=== PATIENT | male | born 1985 | race Hispanic/Latino ===

== ENCOUNTER 2021-03-19 11:20 | Emergency (ER) | payer SELFPAY ==
--- OUTSIDE RECORDS SUMMARY | 2021-03-19 11:23 | XMS REPORT | Continuity of Care Document ---
:[address] [facility] t Address [address] [place] [address] Care Team Providers Name Role Phone Pcp, Does Not Have A Primary Care Physician Laura RAMSAY, T Attending Clinician Unavailable Only, Db Test Attending Clinician Unavailable Unknown Attending Clinician Unavailable Problems This patient has no known problems. Allergies, Adverse Reactions, Alerts This patient has no known allergies or adverse reactions. Social History Social Habit Start Date Stop Date Quantity Comments Source Exposure to Not sure [facility] SARS-CoV-2 (event) [facility] Sex Assigned At [birth year] [facility] 00:00:00 00:00:00 [facility] Smoking Status Start Date Stop Date Source Unknown if ever smoked [facility] Medications This patient has no known medications. Procedures This patient has no known procedures. Encounters Start End Encounter Admission Attending Care Care Encounter Source Date/Time Date/Time Type Type Clinicians Facility Department ID 2021-03-03 2021-03-03 Letter JENNI Sanchez [id number] [facility] 00:00:00 00:00:00 (Out) Kenia VARGAS [id number] it y of [facility] [id number] Jesu as [id number] [place] [address] [address] 2021-03-01 2021-03-01 Laboratory Only, Ang Db Test [facility] 1.2.8 [id number] Univers 10:35:14 10:50:14 Only Unknown, Attending Health [id number] ity of [place] [id number] Jesu as Hansel?Blea [phone] [address] Medical Office Building Results This patient has no known results.
[2021-03-19] MEDS ORDERED: LIDOCAINE 1% MPF 5 ML VIAL ONE (12:11)
--- NOTE | 2021-03-19 12:16 | EDPHYS ---
Physician Documentation [facility] Name: Benton Mcginnis Age: 36 yrs Sex: Male : 1985 Arrival Date: 03/19/2021 Time: 11:22 Bed 12 Private MD: ED Physician Juve Palencia HPI: 03/19 11:53 This 36 yrs old Male presents to ER via Ambulatory with complaints of finger rn laceration. 11:53 The patient has a laceration related to: doing yard work, occurred outdoors, and there rn are no complicating factors. The laceration(s) is(are) located on the right index finger. Onset: The symptoms/episode began/occurred just prior to arrival. Associated signs and symptoms: Pertinent negatives: heavy bleeding, suspected foreign body. The patient has not experienced similar symptoms in the past. The patient has not recently seen a physician. Patient reports turned off a chainsaw, was still spinning and hit right second digit on it. 2 or 3 small lacerations. No suspected foreign body. No arterial bleeding.. Historical: - Allergies: 11:41 No Known Allergies; jl7 - Home Meds: 11:41 None [Active]; jl7 - PMHx: 11:41 None; jl7 - PSHx: 11:41 None; jl7 - Immunization history:: Adult Immunizations unknown, Client reports receiving the 2nd dose of the Covid vaccine. - Social history:: Smoking status: Patient reports the use of cigarette tobacco products. - Family history:: not pertinent. - Hospitalizations: : No recent hospitalization is reported. ROS: 11:53 Constitutional: Negative for fever, chills, and weight loss, MS/Extremity: Positive for rn injury to right second digit. Skin: Positive for lacerations to right second digit Exam: 11:53 Constitutional: This is a well developed, well nourished patient who is awake, alert, rn and in no acute distress. MS/ Extremity: Pulses equal, no cyanosis. Neurovascular intact. Full, normal range of motion. Equal circumference. No bony tenderness or deformity. 3 superficial and clean lacerations to volar surface of the second digit of hand. No arterial bleeding. No foreign bodies noted. Each laceration is horizontal and approximately 2 cm each. Vital Signs: 11:40 BP 119 / 81; Pulse 73; Resp 17; Temp 97.1; Pulse Ox 98% ; Weight 84.37 kg; Height 5 ft. jl7 2 in. (157.48 cm); Pain 9/10; 11:40 Body Mass Index 34.02 (84.37 kg, 157.48 cm) jl7 Procedures: 11:53 Nerve block: (digital) of palmar aspect of proxima; phalanx of right index finger cerner analyst: Lidocaine 1% without epinephrine Amount: 4 mls were injected, Effect: the patient's symptoms are improved, Set up for procedure. Performed by Juve Palencia MD Patient tolerated well. Laceration: 12:12 Wound Repair of 3cm ( 1.2in ) subcutaneous laceration to right index finger. Distal rn neuro/vascular/tendon intact. Anesthesia: Digital block administered with 4 mls of 1% lidocaine. Wound prep: Extensive cleansing by nurse, Wound explored. Skin closed with 4 5-0 Prolene using interrupted sutures and sterile technique. Skin closed with 3 5-0 Prolene using interrupted sutures and sterile technique. Skin closed with 2 5-0 Prolene using interrupted sutures and sterile technique. Dressed with Bacitracin, 4x4's. Patient tolerated well. MDM: 11:43 Patient medically screened. rn 12:14 Differential diagnosis: superficial laceration. Data reviewed: vital signs, nurses rn notes, and as a result, I will discharge patient. Counseling: I had a detailed discussion with the patient and/or guardian regarding: the historical points, exam findings, and any diagnostic results supporting the discharge/admit diagnosis, the need for outpatient follow up, to return to the emergency department if symptoms worsen or persist or if there are any questions or concerns that arise at home. Response to treatment: the patient's symptoms have markedly improved after treatment, and as a result, I will discharge patient. Special discussion: I discussed with the patient/guardian in detail that at this point there is no indication for admission to the hospital. It is understood, however, that if the symptoms persist or worsen the patient needs to return immediately for re-evaluation. ED course: I did suturing of all 3 lacerations of right index finger well. Will DC home after tetanus vaccination. Will DC home with antibiotics.. 03/19 11:47 Order name: Wound Care; Complete Time: 11:57 rn 03/19 11:47 Order name: Suture Tray at Bedside; Complete Time: 11:57 rn Administered Medications: 11:50 Drug: Lidocaine (1 %) 1 vials {Note: administered by Dr. Palencia.} Volume: 5 ml; Route: ss Infiltration; 12:33 Drug: Tetanus-Diphtheria Toxoid Adult 0.5 ml {Shelf Drier Operator: H?REL. Exp: ss 10/03/2022. Lot #: [id number]. } Route: IM; Site: right deltoid; 12:46 Follow up: Response: No adverse reaction ss Disposition Summary: 03/19/21 12:16 Discharge Ordered Location: Home rn Problem: new rn Symptoms: have improved rn Condition: Stable rn Diagnosis - Laceration without foreign body of right index finger without damage to nail - 3 rn lacerations Followup: rn - With: Private Physician - When: 10 - 14 days - Reason: Wound Recheck, Recheck today's complaints, Staple/Suture removal, Re-evaluation by your physician Discharge Instructions: - Discharge Summary Sheet rn - Laceration Care, Adult rn - Sutured international accounting manager Forms: - Medication Reconciliation Form rn - Thank You Letter rn - Antibiotic tool grinder operator external - Prescription Opioid Use rn - Work release form Prescriptions: - Augmentin 875-125 mg Oral Tablet - take 1 tablet by ORAL route every 12 hours for 10 days; 20 tablet; Refills: 0, rn Product Selection Permitted Signatures: Juve Palencia MD MD rn Smirch, Shelby, RN RN ss Leal, Jahala, RN RN jl7
--- NOTE | 2021-03-19 12:16 | ER ---
Nurse's Notes [facility] Name: Benton Mcginnis Age: 36 yrs Sex: Male : 1985 Arrival Date: 03/19/2021 Time: 11:22 Bed 12 Private MD: Diagnosis: Laceration without foreign body of right index finger without damage to nail-3 lacerations Presentation: 03/19 11:40 Chief complaint: Patient states: Cut right first finger with chain saw about 1.5 hrs jl7 ago. Coronavirus screen: Vaccine status: Patient reports receiving the 2nd dose of the covid vaccine. Date January 2021 Pfizer At this time, the client does not indicate any symptoms associated with coronavirus-19. Ebola Screen: No symptoms or risks identified at this time. Initial Sepsis Screen: Does the patient meet any 2 criteria? No. Patient's initial sepsis screen is negative. Does the patient have a suspected source of infection? No. Patient's initial sepsis screen is negative. Risk Assessment: Do you want to hurt yourself or someone else? Patient reports no desire to harm self or others. Onset of symptoms was March 19, 2021. 11:40 Method Of Arrival: Ambulatory 7 11:40 Acuity: KEITH 4 jl7 Triage Assessment: 11:41 General: Appears in no apparent distress. uncomfortable, Behavior is calm, cooperative, jl7 appropriate for age. Pain: Complains of pain in right index finger Pain currently is 9 out of 10 on a pain scale. Historical: - Allergies: 11:41 No Known Allergies; jl7 - Home Meds: 11:41 None [Active]; jl7 - PMHx: 11:41 None; jl7 - PSHx: 11:41 None; jl7 - Immunization history:: Adult Immunizations unknown, Client reports receiving the 2nd dose of the Covid vaccine. - Social history:: Smoking status: Patient reports the use of cigarette tobacco products. - Family history:: not pertinent. - Hospitalizations: : No recent hospitalization is reported. Screenin:57 Abuse screen: Denies threats or abuse. Denies injuries from another. Nutritional ss screening: No deficits noted. Tuberculosis screening: Never had TB. Fall Risk None identified. Assessment: 11:57 General: Appears in no apparent distress. comfortable, Behavior is calm, cooperative, ss nervous laughing. Pain: Complains of pain in right index finger. Neuro: Level of Consciousness is awake, alert, obeys commands, Oriented to person, place, time, situation, Temple Marker are equal bilaterally. Cardiovascular: Capillary refill < 3 seconds is brisk in bilateral fingers. Respiratory: Airway is patent Respiratory effort is even, unlabored, Respiratory pattern is regular, symmetrical. GI: No signs and/or symptoms were reported involving the gastrointestinal system. EENT: Nares are clear. Derm: Skin is intact, is healthy with good turgor, Skin is pink, warm \T\ dry. normal. 11:57 Injury Description: Laceration sustained to right index finger is 0.5 to 2.5 cm long, ss was sustained 30-60 minutes ago. no active bleeding noted at this time. 12:01 Reassessment: Dr. Palencia at bedside for laceration repair. Vital Signs: 11:40 BP 119 / 81; Pulse 73; Resp 17; Temp 97.1; Pulse Ox 98% ; Weight 84.37 kg; Height 5 ft. jl7 2 in. (157.48 cm); Pain 9/10; 11:40 Body Mass Index 34.02 (84.37 kg, 157.48 cm) jl7 ED Course: 11:22 Patient arrived in ED. mr 11:39 Griselda Hunter, RN is Primary Nurse. jl7 11:41 Triage completed. jl7 11:41 Arm band placed on right wrist. jl7 11:43 Juve Palencia MD is Attending Physician. rn 11:57 Patient has correct armband on for positive identification. Bed in low position. Call ss light in reach. 12:44 No provider procedures requiring assistance completed. Patient did not have IV access ss during this emergency room visit. Wound care: to laceration located on palmar aspect of proxima; phalanx of right index finger and right index finger was cleaned with Hibiclens, Patient tolerated well. Administered Medications: 11:50 Drug: Lidocaine (1 %) 1 vials {Note: administered by Dr. Palencia.} Volume: 5 ml; Route: ss Infiltration; 12:33 Drug: Tetanus-Diphtheria Toxoid Adult 0.5 ml {Oral And Maxillofacial Surgeon: [employer]. Exp: ss 10/03/2022. Lot #: [id number]. } Route: IM; Site: right deltoid; 12:46 Follow up: Response: No adverse reaction Outcome: 12:16 Discharge ordered by . rn 12:44 Discharged to home ambulatory. ss 12:44 Condition: good 12:44 Discharge instructions given to patient, Instructed on discharge instructions, follow up and referral plans. Demonstrated understanding of instructions, follow-up care, Prescriptions given X 1. 12:45 Patient left the ED. Signatures: Naya Magaña mr Juve Palencia MD MD rn Smirch, Shelby, RN RN Griselda Hunter RN RN jl7
[2021-03-19] MEDS ORDERED: TETANUS & DIPHTHERIA TOX,ADULT 0.5 ML VIAL ONE (12:52)
[2021-03-19 12:58] VITALS: BP 119/81; TEMP 97.1; O2SAT 98
== END 2021-03-19 12:45 | disposition home or self-care (01) ==
LOC: ER 11:20
PROC: 0JQJ0ZZ Repair Right Hand Subcutaneous Tissue and Fascia, Open Approach (ICD-10-PCS; principal; 2021-03-19)
DX: S61.210A Laceration without foreign body of right index finger without damage to nail, initial encounter (principal); W29.3XXA Contact with powered garden and outdoor hand tools and machinery, initial encounter; F17.210 Nicotine dependence, cigarettes, uncomplicated
CPT/HCPCS: 64450; 90471; 90714; 99283

== ENCOUNTER 2021-03-25 10:26 | Emergency (ER) | payer SELFPAY ==
--- NOTE | 2021-03-25 10:45 | ER ---
Nurse's Notes [facility] Name: Benton Mcginnis Age: 36 yrs Sex: Male : 1985 Arrival Date: 03/25/2021 Time: 10:27 Bed Waiting Private MD: Diagnosis: Encounter for removal of sutures-Not ready for removal, too soon Presentation: 03/25 10:44 Chief complaint: Patient states: Needs stitches removed from R hand 2nd digit. Place 6 ll1 days ago. No redness, fever, or swelling. Coronavirus screen: Client denies travel out of the [place] in the last 14 days. At this time, the client does not indicate any symptoms associated with coronavirus-19. Ebola Screen: Patient denies travel to an Ebola-affected area in the 21 days before illness onset. Initial Sepsis Screen: Does the patient meet any 2 criteria? No. Patient's initial sepsis screen is negative. Does the patient have a suspected source of infection? Yes: Skin breakdown/wound. Risk Assessment: Do you want to hurt yourself or someone else? Patient reports no desire to harm self or others. Onset of symptoms was March 19, 2021. 10:44 Method Of Arrival: Ambulatory ll1 10:44 Acuity: KEITH 5 ll1 Triage Assessment: 10:45 General: Appears in no apparent distress. Behavior is calm, cooperative. Pain: Denies ll1 pain. Derm: Reports need stitches removed from R hand 2nd digit. No redness, pain, swelling, or fever since. Historical: - Allergies: 10:43 No Known Allergies; ll1 - PMHx: 10:43 None; ll1 - PSHx: 10:43 None; ll1 - Immunization history:: Last tetanus immunization: up to date. - Social history:: Smoking status: Patient reports the use of cigarette tobacco products, smokes one-half pack cigarettes per day. - Family history:: not pertinent. - Hospitalizations: : No recent hospitalization is reported. Screenin:45 Abuse screen: Denies threats or abuse. Nutritional screening: No deficits noted. ll1 Tuberculosis screening: No symptoms or risk factors identified. Fall Risk Total Aviles Fall Scale indicates No Risk (0-24 pts). Vital Signs: 10:44 BP 134 / 91; Pulse 71; Resp 17; Temp 97.7; Pulse Ox 96% ; Pain 0/10; ll1 ED Course: 10:27 Patient arrived in ED. am2 10:30 Juve Palencia MD is Attending Physician. rn 10:43 Arm band placed on Patient placed in an exam room, on a stretcher. ll1 10:46 Triage completed. ll1 10:50 Patient has correct armband on for positive identification. Bed in low position. Call ll1 light in reach. Side rails up X 1. Cardiac monitoring not applicable on this patient. 10:50 No provider procedures requiring assistance completed. Patient did not have IV access ll1 during this emergency room visit. Administered Medications: No medications were administered Outcome: 10:45 Discharge ordered by MD. rn 10:55 Patient left the ED. ll1 10:55 Discharged to home ambulatory. ll1 10:55 Condition: stable 10:55 Discharge instructions given to patient, Instructed on discharge instructions, follow up and referral plans. Demonstrated understanding of instructions, follow-up care. Signatures: Juve Palencia MD MD rn Moreno, Amanda am2 Liv Monroy RN RN [facility]
--- NOTE | 2021-03-25 10:45 | EDPHYS ---
Physician Documentation [facility] Name: Benton Mcginnis Age: 36 yrs Sex: Male : 1985 Arrival Date: 03/25/2021 Time: 10:27 Bed Waiting Private MD: ED Physician Juve Palencia HPI: 03/25 10:43 This 36 yrs old Male presents to ER via Unassigned with complaints of Suture rn Removal. 10:43 The patient has sutures on the Right index finger. Previous treatment: The patient was rn initially treated 6 day(s) ago. Sutures/inderjit progress: The patient has no c/o's. The wound is well-healing with no redness, swelling, discharge, or dehiscence reported. The patient has not experienced similar symptoms in the past. The patient has been recently seen at the [facility] Emergency Department. Sutures to right index finger placed 6 days ago. Patient states doing well. Wounds have not opened up. Here for removal. Also needs clearance to return to work.. Historical: - Allergies: 10:43 No Known Allergies; ll1 - PMHx: 10:43 None; ll1 - PSHx: 10:43 None; ll1 - Immunization history:: Last tetanus immunization: up to date. - Social history:: Smoking status: Patient reports the use of cigarette tobacco products, smokes one-half pack cigarettes per day. - Family history:: not pertinent. - Hospitalizations: : No recent hospitalization is reported. ROS: 10:43 Constitutional: Negative for fever, chills, and weight loss, MS/Extremity: Sutures in rn place and wounds appear to be healing well Exam: 10:43 Constitutional: This is a well developed, well nourished patient who is awake, alert, rn and in no acute distress. MS/ Extremity: Pulses equal, no cyanosis. Neurovascular intact. Full, normal range of motion. Equal circumference. Wounds healing well without signs of cellulitis or dehiscence. Vital Signs: 10:44 BP 134 / 91; Pulse 71; Resp 17; Temp 97.7; Pulse Ox 96% ; Pain 0/10; ll1 MDM: 10:43 Data reviewed: vital signs, nurses notes, and as a result, I will discharge patient. ED rn course: Told patient 6 days too soon. Recommend come back in 4 days for 10 days total then will remove sutures. Signed return to work paperwork for patient.. 10:45 Patient medically screened. rn Administered Medications: No medications were administered Disposition Summary: 03/25/21 10:45 Discharge Ordered Location: Home rn Problem: new rn Symptoms: have improved rn Condition: Stable rn Diagnosis - Encounter for removal of sutures - Not ready for removal, too soon rn Followup: rn - With: Private Physician - When: As needed - Reason: Recheck today's complaints, Re-evaluation by your physician Discharge Instructions: - Discharge Summary Sheet rn - How to Change Your Wound Dressing rn - Laceration Care, Adult rn Forms: - Medication Reconciliation Form rn - Thank You Letter rn - Antibiotic internal medicine veterinary technician - Prescription Opioid Use rn Signatures: Juve Palencia MD MD rn Lewis, Lynsay, RN RN ll1
[2021-03-25 11:16] VITALS: BP 134/91; TEMP 97.7; O2SAT 96
== END 2021-03-25 10:55 | disposition home or self-care (01) ==
LOC: ER 10:26
DX: Z48.02 Encounter for removal of sutures (principal)
CPT/HCPCS: 99281

== ENCOUNTER 2021-12-14 03:02 | Emergency (ER) | payer SELFPAY ==
--- OUTSIDE RECORDS SUMMARY | 2021-12-14 03:05 | XMS REPORT | Continuity of Care Document ---
:1985 Author Organization [facility] t Address [address] [place] [address] Care Team Providers Name Role Phone Pcp, Does Not Have A Primary Care Physician Laura RAMSAY T Attending Clinician Unavailable Only, Db Test Attending Clinician Unavailable Unknown Attending Clinician Unavailable UNKNOWN Attending Clinician Unavailable Payers Payer Name Policy Type Policy Number Effective Date Expiration Date S ource Problems This patient has no known problems. Allergies, Adverse Reactions, Alerts Allergy Allergy Status Severity Reaction(s) Onset Inactive Treating Comm ents Source Name Type Date Date Clinician NO KNOWN Drug Active Univers ALLERGIE Class [facility] Social History Social Habit Start Date Stop Date Quantity Comments Source Exposure to Not sure [facility] SARS-CoV-2 (event) [facility] Sex Assigned At [birth year] [facility] 00:00:00 00:00:00 [facility] Smoking Status Start Date Stop Date Source Unknown if ever smoked [facility] Medications This patient has no known medications. Procedures This patient has no known procedures. Encounters Start End Encounter Admission Attending Care Care Encounter Source Date/Time Date/Time Type Type Clinicians Facility Department ID 2021-04-17 Outpatient [facility] [id number] [facility] 20:47:22 [id number] [facility] 2021-03-03 2021-03-03 Letter JENNI Sanchez [id number] Univers 00:00:00 00:00:00 (Out) Kenia VARGAS [id number] [facility] [id number] Jesu as [phone] [place] [id number] [address] 2021-03-01 2021-03-01 Outpatient R [facility] [id number] Univers 11:10:00 11:10:00 [id number] ity of [facility] 2021-03-01 2021-03-01 Laboratory Only, Ang Db Test [facility] 1.2.8 [id number] Univers 10:35:14 10:50:14 Only Unknown, Attending [facility] [id number] ity [facility] [id number] Jesu as Hansel?Blea [phone] Fl lindsey [address] Medical Office Building 2021-03-01 2021-03-01 Outpatient R UNKNOWN, [facility] [id number] Univers 10:35:00 10:35:00 ATTENDING ity [facility] Results This patient has no known results.
[2021-12-14] MEDS ORDERED: TETRACAINE HCL 0.5% 4ML OPTH ONE (05:01)
[2021-12-14] MEDS ORDERED: FLUORESCEIN SODIUM 1 MG/WRAP ONE (05:01)
[2021-12-14] MEDS ORDERED: AMOXICILLIN TRIHYDR 250 MG CAP ONE (05:57)
--- NOTE | 2021-12-14 06:41 | ER ---
Nurse's Notes [facility] Name: Benton Mcginnis Age: 36 yrs Sex: Male : 1985 Arrival Date: 12/14/2021 Time: 03:05 Bed 27 Private MD: Diagnosis: Unspecified acute conjunctivitis, bilateral;Corneal abrasion, right;Acute pharyngitis, unspecified Presentation: 12/14 03:31 Chief complaint: Patient states: I have a soar throat that started on Wednesday jb4 afternoon. I was doing yard work today and after both my eyes started getting red and I have discharge from my left eye. Coronavirus screen: At this time, the client does not indicate any symptoms associated with coronavirus-19. Ebola Screen: No symptoms or risks identified at this time. Mechanism of Injury: possible foreign body in eye. The patient denies any loss of vision. Initial Sepsis Screen: Does the patient meet any 2 criteria? No. Patient's initial sepsis screen is negative. Does the patient have a suspected source of infection? No. Patient's initial sepsis screen is negative. Risk Assessment: Do you want to hurt yourself or someone else? Patient reports no desire to harm self or others. Onset of symptoms was December 14, 2021. Transition of care: patient was not received from another setting of care. 03:31 Method Of Arrival: Ambulatory jb4 03:31 Acuity: KEITH 3 jb4 Historical: - Allergies: 03:33 No Known Allergies; jb4 - Home Meds: 03:33 None [Active]; jb4 - PMHx: 03:33 None; jb4 - PSHx: 03:33 None; jb4 - Immunization history:: Adult Immunizations up to date. - Social history:: Smoking status: Patient reports the use of cigarette tobacco products, smokes .25 packs per day. Screenin:08 Abuse screen: Denies threats or abuse. Nutritional screening: No deficits noted. jb4 Tuberculosis screening: No symptoms or risk factors identified. Fall Risk None identified. Assessment: 04:00 General: Appears in no apparent distress. comfortable, Behavior is calm, cooperative, jb4 appropriate for age. Pain: Complains of pain in right eye and left eye Pain does not radiate. Pain currently is 7 out of 10 on a pain scale. Neuro: Level of Consciousness is awake, alert, obeys commands, Oriented to person, place, time, situation. Cardiovascular: Patient's skin is warm and dry. Respiratory: Airway is patent Respiratory effort is even, unlabored, Respiratory pattern is regular, symmetrical. EENT: Eyes with exudate noted from left inner canthus Sclera/Cornea are reddened in outer aspect of conjuctiva of right eye, iris of right eye, inner aspect of conjuctiva of right eye, outer aspect of conjuctiva of left eye, iris of left eye and inner aspect of conjunctiva of left eye. Derm: Skin is intact, Skin is pink, warm \T\ dry. 05:09 Reassessment: Patient appears in no apparent distress at this time. Patient and/or jb4 family updated on plan of care and expected duration. Pain level reassessed. Patient is alert, oriented x 3, equal unlabored respirations, skin warm/dry/pink. 06:54 Reassessment: Patient appears in no apparent distress at this time. Patient and/or jb4 family updated on plan of care and expected duration. Pain level reassessed. Patient is alert, oriented x 3, equal unlabored respirations, skin warm/dry/pink. Vital Signs: 03:31 BP 138 / 87; Pulse 98; Resp 16; Temp 97.8(TE); Pulse Ox 99% on R/A; Weight 84.82 kg jb4 (R); Height 5 ft. 3 in. (160.02 cm) (R); Pain 7/10; 03:31 Body Mass Index 33.13 (84.82 kg, 160.02 cm) jb4 Visual Acuity: 05:08 Left Eye Visual acuity 20/40, Pupil size 4 mm, Normal, React To Light; Right Eye Visual jb4 acuity 20/40, Pupil size 4 mm, Normal, React To Light; Both Eyes Visual acuity 20/30; Without Lenses; ED Course: 03:05 Patient arrived in ED. bp1 03:33 Triage completed. jb4 03:33 Arm band placed on right wrist. jb4 03:50 Ludwig Hurt MD is Attending Physician. mh7 04:09 Pietro Spencer, SOBIA is Primary Nurse. jb4 06:38 Princess Lorenzo MD is Referral Physician. 7 06:54 Patient has correct armband on for positive identification. Bed in low position. Call jb4 light in reach. Side rails up X 1. 06:54 No provider procedures requiring assistance completed. Patient did not have IV access jb4 during this emergency room visit. Administered Medications: 05:43 Drug: Tetracaine Drops 0.5 % 1 drops {Note: Administered by provider.} Route: jb4 Ophthalmic; Site: both eyes; 05:48 Not Given (medication unavailablee): Ciprofloxacin Drops 0.3 % 2 drops Ophthalmic once jb4 05:52 Drug: Amoxicillin 500 mg Route: PO; jb4 06:55 Follow up: Response: No adverse reaction jb4 Medication: 05:08 VIS not applicable for this client. jb Outcome: 06:40 Discharge ordered by . [facility] 06:54 Discharged to home ambulatory. jb4 06:54 Condition: stable 06:54 Discharge instructions given to patient, Instructed on discharge instructions, follow up and referral plans. medication usage, Demonstrated understanding of instructions, follow-up care, medications, Prescriptions given X 2. 06:55 Patient left the ED. [facility] Signatures: Pietro Spencer RN RN 4 Mckenna Boles Maurice, MD MD 7
--- NOTE | 2021-12-14 06:41 | EDPHYS ---
Physician Documentation [facility] Name: Benton Mcginnis Age: 36 yrs Sex: Male : 1985 Arrival Date: 12/14/2021 Time: 03:05 Bed 27 Private MD: ED Physician Ludwig Hurt HPI: 12/14 05:20 This 36 yrs old Male presents to ER via Ambulatory with complaints of Eye mh7 Injury, Eye Pain, Sore Throat. 05:20 The patient is experiencing pain, redness, to both eyes, caused by an unknown mh7 mechanism. Onset: The symptoms/episode began/occurred yesterday. 05:20 Duration: the symptoms are continuous. Aggravated by rubbing, Alleviated by nothing. mh7 Associated signs and symptoms: Pertinent negatives: chills, dizziness, ear ache, fever, headache, runny nose. Patient does not utilize any form of vision correction. Severity of symptoms: At their worst the symptoms were moderate last night, in the emergency department the symptoms are unchanged. Also complains of sore throat for 4 days.. Historical: - Allergies: 03:33 No Known Allergies; jb4 - Home Meds: 03:33 None [Active]; jb4 - PMHx: 03:33 None; jb4 - PSHx: 03:33 None; jb4 - Immunization history:: Adult Immunizations up to date. - Social history:: Smoking status: Patient reports the use of cigarette tobacco products, smokes .25 packs per day. ROS: 05:20 Constitutional: Negative for fever, chills, and weight loss, Neck: Negative for injury, mh7 pain, and swelling, Cardiovascular: Negative for chest pain, palpitations, and edema, Respiratory: Negative for shortness of breath, cough, wheezing, and pleuritic chest pain, Abdomen/GI: Negative for abdominal pain, nausea, vomiting, diarrhea, and constipation, Back: Negative for injury and pain, : Negative for injury, bleeding, discharge, and swelling, MS/Extremity: Negative for injury and deformity, Skin: Negative for injury, rash, and discoloration, Neuro: Negative for headache, weakness, numbness, tingling, and seizure, Psych: Negative for depression, anxiety, suicide ideation, homicidal ideation, and hallucinations, Allergy/Immunology: Negative for hives, rash, and allergies, Endocrine: Negative for neck swelling, polydipsia, polyuria, polyphagia, and marked weight changes, Hematologic/Lymphatic: Negative for swollen nodes, abnormal bleeding, and unusual bruising. Exam: 05:20 Visual Acuity: I have reviewed the nursing documentation. mh7 05:20 Constitutional: This is a well developed, well nourished patient who is awake, alert, and in no acute distress. Head/Face: Normocephalic, atraumatic. 05:20 Neck: Trachea midline, no thyromegaly or masses palpated, and no cervical lymphadenopathy. Supple, full range of motion without nuchal rigidity, or vertebral point tenderness. No Meningismus. Chest/axilla: Normal chest wall appearance and motion. Nontender with no deformity. No lesions are appreciated. Cardiovascular: Regular rate and rhythm with a normal S1 and S2. No gallops, murmurs, or rubs. Normal PMI, no JVD. No pulse deficits. Respiratory: Lungs have equal breath sounds bilaterally, clear to auscultation and percussion. No rales, rhonchi or wheezes noted. No increased work of breathing, no retractions or nasal flaring. Abdomen/GI: Soft, non-tender, with normal bowel sounds. No distension or tympany. No guarding or rebound. No evidence of tenderness throughout. Back: No spinal tenderness. No costovertebral tenderness. Full range of motion. Skin: Warm, dry with normal turgor. Normal color with no rashes, no lesions, and no evidence of cellulitis. MS/ Extremity: Pulses equal, no cyanosis. Neurovascular intact. Full, normal range of motion. Neuro: Awake and alert, GCS 15, oriented to person, place, time, and situation. Cranial nerves II-XII grossly intact. Motor strength 5/5 in all extremities. Sensory grossly intact. Cerebellar exam normal. Normal gait. Psych: Awake, alert, with orientation to person, place and time. Behavior, mood, and affect are within normal limits. 05:20 Eyes: Periorbital structures: appear normal, Pupils: equal, round, and reactive to light and accomodation, Extraocular movements: intact throughout, Conjunctiva: injected, bilaterally, Corneas: abrasion, that is small, approximately 6 mm(s), on the right, a fluorescein strip employed to appreciate the findings, Sclera: no appreciated abnormality, Lids and lashes: appear normal, funduscopic exam reveals no obvious abnormalities, Visual kapoor: are intact, Nystagmus: is not appreciated. 05:20 ENT: External ear(s): are unremarkable, Ear canal(s): are normal, clear, TM's: are normal, Nose: is normal, Mouth: is normal, Posterior pharynx: Airway: normal, Tonsils: bilaterally enlarged, with erythema, Uvula: normal, swelling, that is mild, erythema, that is mild, exudate, is not appreciated, peritonsillar mass, is not appreciated, pooling of secretions, is not appreciated, Dental exam: normal, Voice: is normal. Vital Signs: 03:31 BP 138 / 87; Pulse 98; Resp 16; Temp 97.8(TE); Pulse Ox 99% on R/A; Weight 84.82 kg jb4 (R); Height 5 ft. 3 in. (160.02 cm) (R); Pain 7/10; 03:31 Body Mass Index 33.13 (84.82 kg, 160.02 cm) jb4 Visual Acuity: 05:08 Left Eye Visual acuity 20/40, Pupil size 4 mm, Normal, React To Light; Right Eye Visual jb4 acuity 20/40, Pupil size 4 mm, Normal, React To Light; Both Eyes Visual acuity 20/30; Without Lenses; MDM: 06:37 Differential diagnosis: Corneal abrasion of both eyes. Corneal ulcer of both eyes. mh7 Foreign body in both eyes. Acute iritis of both eyes. Infectious conjunctivitis in Ultraviolet keratitis in both eyes. Data reviewed: vital signs, nurses notes. Data interpreted: Pulse oximetry: on room air is 99 %. Interpretation: normal. Counseling: I had a detailed discussion with the patient and/or guardian regarding: the historical points, exam findings, and any diagnostic results supporting the discharge/admit diagnosis, the presence of at least one elevated blood pressure reading (>120/80) during this emergency department visit, the need for outpatient follow up, an opthalmologist, to return to the emergency department if symptoms worsen or persist or if there are any questions or concerns that arise at home. Response to treatment: the patient's symptoms have markedly improved after treatment. 06:40 Patient medically screened. mh7 12/14 05:43 Order name: Eye Tray; Complete Time: 05:43 jb4 12/14 05:43 Order name: Fluoresene Opth strip; Complete Time: 05:43 jb4 12/14 05:43 Order name: Visual Acuity; Complete Time: 05:43 jb4 Administered Medications: 05:43 Drug: Tetracaine Drops 0.5 % 1 drops {Note: Administered by provider.} Route: jb4 Ophthalmic; Site: both eyes; 05:48 Not Given (medication unavailablee): Ciprofloxacin Drops 0.3 % 2 drops Ophthalmic once jb4 05:52 Drug: Amoxicillin 500 mg Route: PO; jb4 06:55 Follow up: Response: No adverse reaction jb4 Disposition Summary: 12/14/21 06:40 Discharge Ordered Location: Home [facility] Problem: new [facility] Symptoms: have improved [facility] Condition: Stable [facility] Diagnosis - Unspecified acute conjunctivitis, bilateral mh7 - Corneal abrasion, right mh7 - Acute pharyngitis, unspecified mh7 Followup: [facility] - With: Private Physician - When: 1 - 2 days - Reason: Worsening of condition, Recheck today's complaints, Continuance of care, Re-evaluation by your physician Followup: [facility] - With: Princess Lorenzo MD - When: 1 - 2 days - Reason: Worsening of condition, Recheck today's complaints Discharge Instructions: - Discharge Summary Sheet 7 - Viral Conjunctivitis, Adult 7 - Corneal Abrasion, [id number] 7 - Pharyngitis, [id number] [facility] Forms: - Medication Reconciliation Form [facility] - Thank You Letter [facility] - Antibiotic Education [facility] - Prescription Opioid Use [facility] Prescriptions: - Amoxicillin 500 mg Oral Capsule - take 1 capsule by ORAL route every 8 hours for 10 days; 30 tablet; Refills: 0, [facility] Product Selection Permitted - Ciloxan 0.3 % Ophthalmic Drops - instill 2 drops by OPHTHALMIC route every 6 hours for 7 days; 5 milliliter; [facility] Refills: 0, Product Selection Permitted Signatures: Pietro Spencer RN RN jb4 Ludwig Hurt MD MD [facility]
[2021-12-14 07:04] VITALS: BP 138/87; TEMP 97.8; O2SAT 99
== END 2021-12-14 06:55 | disposition home or self-care (01) ==
LOC: ER 03:02
DX: H10.33 Unspecified acute conjunctivitis, bilateral (principal); S05.01XA Injury of conjunctiva and corneal abrasion without foreign body, right eye, initial encounter; J02.9 Acute pharyngitis, unspecified; F17.210 Nicotine dependence, cigarettes, uncomplicated
CPT/HCPCS: 99283